=== PATIENT | female | born 1955 | race Caucasian/White ===

== ENCOUNTER → 2019-01-30 | Day surgery (SDC) | payer MEDICAID ==
[~2019-01-30] VITALS: Ht 175.3 cm; Wt 120.0 kg
[~2019-01-30] MED LIST: 0.9% SODIUM CHLORIDE 10 ML SYRINGE IVP PRN; ALBU8.5H8 IH; ASPI-556 PO; ATEN50TA PO; CHOL50004 PO; ESTR-8 PO; IMIP50TA6 PO; INSU100I26 SQ; INSU100V SQ; ISOS30TA6 PO; METOPROLOL TARTRATE 5 MG/5 ML VIAL IVP ONE; METOPROLOL TARTRATE 50 MG TABLET ONE; METOPROLOL TARTRATE 50 MG TABLET PO ONE; MethylPREDNISolone SOD SUCC 125 MG/2 ML VIAL IVP ONE; NITR0.4T52 SL; SIMV-261 PO; TRIA16.911 NASAL
[2019-01-30 07:56] LABS: CREATININE 1.7 mg/dL (0.60-1.30); POTASSIUM 4.8 mmol/L (3.5-5.1)
== END | disposition home or self-care (01) ==
LOC: SURGERY 06:45 → EDSTATUS 09:00
PROVIDERS: ATTEND Internal Medicine Cardiovascular Disease
DX: I20.8 Other forms of angina pectoris (principal); I12.9 Hypertensive chronic kidney disease with stage 1 through stage 4 chronic kidney disease, or unspecified chronic kidney disease; E11.22 Type 2 diabetes mellitus with diabetic chronic kidney disease; N18.9 Chronic kidney disease, unspecified; E78.5 Hyperlipidemia, unspecified; F32.9 Major depressive disorder, single episode, unspecified; Z79.82 Long term (current) use of aspirin; Z79.899 Other long term (current) drug therapy; Z98.890 Other specified postprocedural states; Z53.8 Procedure and treatment not carried out for other reasons
CPT/HCPCS: 93005